=== PATIENT | female | born 1985 | race African-American/Black ===

== ENCOUNTER 2017-07-26 20:12 | Emergency (ER) | payer OTHER ==
[~2017-07-26] VITALS: Ht 165.1 cm; Wt 59.0 kg
[2017-07-26] MEDS ORDERED: Dicyclomine HCl 10mg/5ml oral soln ORAL ONE (20:45)
[2017-07-26] MEDS ORDERED: Meclizine 25mg tab ORAL ONE (20:45)
--- NOTE | 2017-07-26 20:45 | Emergency Room Report ---
History of Present Illness General Chief Complaint: Abdominal Pain Source: Patient Present Illness HPI Patient is a 31-year-old female presented after increased of vomiting and diarrhea. The patient gradual onset of symptoms. This reported having vomiting for the past few hours associated with some vertigo sensation. Patient reported having a mild headache. She denies any neck stiffness. She gradual onset of symptoms. Patient also had noticed him a small amount of blood in her urine. She had lower abdominal cramping. Patient stated that she had recently taken Plan B. She states her normal menstrual cycle occurs usually on the . She denies being .She denied having any bloody stools or hematemesis. Allergies: Coded Allergies: No Known Allergies (Unverified , 07/26/17) Patient History Past Medical History: see triage record Last Menstrual Period: JUN 28 Now: No Reviewed Nursing Documentation: PMH: Agreed, PSxH: Agreed Nursing Documentation-PMH Past Medical History: No Stated History Review of Systems All Other Systems: negative except mentioned in HPI Physical Exam Vital Signs Date Time Temp Pulse Resp B/P (MAP) Pulse Ox O2 Delivery O2 Flow Rate FiO2 07/26/17 20:15 98.4 78 20 141/83 98 Room Air Sp02 EP Interpretation: reviewed, normal General Appearance: normal inspection, well appearing, no apparent distress, alert, GCS 15, non-toxic Head: atraumatic ENT: normal ENT inspection, hearing grossly normal, normal voice Neck: normal inspection, full range of motion, supple, no bony tend Respiratory: normal inspection, lungs clear, normal breath sounds, no respiratory distress, no retraction, no wheezing Cardiovascular #1: regular rate, rhythm, no edema Gastrointestinal: normal inspection, normal bowel sounds, non tender, soft, no guarding, no hernia Genitourinary: no CVA tenderness Musculoskeletal: normal inspection, back normal, normal range of motion Neurologic: normal inspection, alert, oriented x3, responsive, cps team lead III-XII nml as tested, speech normal Psychiatric: normal inspection, judgement/insight normal, mood/affect normal Skin: normal inspection, normal color, no rash Medical Decision Making Diagnostic Impression: Primary Impression: Urinary tract infection ER Course Patient presented for abdominal pain. Differential diagnoses included ischemic bowel, appendicitis, perforated viscus, abdominal aortic aneurysm, inferior myocardial infarction, viral gastroenteritis Because of complexity of patient's case laboratory testing and imaging studies were ordered.Patient was given IV fluids. She was given IV antiemetics. She had no fever. Patient was noted to have improvement in pain and nausea after medications.The patient is advised to follow up with primary care doctor in 1- 2 days. Patient is advised to return if any worsening condition or if any changes in status that are concerning. Labs Test 07/26/17 20:22 07/26/17 20:32 Urine Color Pale yellow Urine Appearance Slightly cloudy Urine pH 8 (4.5-8.0) Urine Specific [place] 1.010 (1.005-1.035) Urine Protein Negative (NEGATIVE) Urine Glucose (UA) Negative (NEGATIVE) Urine Ketones Negative (NEGATIVE) Urine Occult Blood 5+ (NEGATIVE) Urine Nitrite Negative (NEGATIVE) Urine Bilirubin Negative (NEGATIVE) Urine Urobilinogen 1 MG/DL (0.0-1.0) Urine Leukocyte Esterase 1+ (NEGATIVE) Urine RBC 2-4 /HPF (0 - 2) Urine WBC 5-10 /HPF (0 - 2) Urine Squamous Epithelial Cells Many /LPF (NONE/OCC) Urine Bacteria Few /HPF (NONE) Urine HCG, Qualitative Negative White Blood Count 5.4 K/UL (4.8-10.8) Red Blood Count 4.24 M/UL (4.20-5.40) Hemoglobin 12.1 G/DL (12.0-16.0) Hematocrit 36.7 % (37.0-47.0) Mean Corpuscular Volume 87 FL (80-99) Mean Corpuscular Hemoglobin 28.5 PG (27.0-31.0) Mean Corpuscular Hemoglobin Concent 32.9 G/DL (32.0-36.0) Red Cell Distribution Width 12.6 % (11.6-14.8) Platelet Count 175 K/UL (150-450) Mean Platelet Volume 8.4 FL (6.5-10.1) Neutrophils (%) (Auto) 42.2 % (45.0-75.0) Lymphocytes (%) (Auto) 44.4 % (20.0-45.0) Monocytes (%) (Auto) 9.8 % (1.0-10.0) Eosinophils (%) (Auto) 1.2 % (0.0-3.0) Basophils (%) (Auto) 2.4 % (0.0-2.0) Sodium Level 139 mEQ/L (135-145) Potassium Level 3.7 mEQ/L (3.4-4.9) Chloride Level 103 mEQ/L (98-107) Carbon Dioxide Level 27 mEQ/L (20-30) Anion Gap 9 (5-15) Blood Urea Nitrogen 15 mg/dL (7-23) Creatinine 0.8 mg/dL (0.5-0.9) Estimat Glomerular Filtration Rate > 60 mL/min (>60) Glucose Level 106 mg/dL (74-106) Calcium Level 9.4 mg/dL (8.6-10.2) Total Bilirubin 0.3 mg/dL (0.0-1.2) Aspartate Amino Transf (AST/SGOT) 13 U/L (5-40) Alanine Aminotransferase (ALT/SGPT) 9 U/L (3-33) Alkaline Phosphatase 67 U/L (35-104) Total Protein 7.4 g/dL (6.6-8.7) Albumin 4.4 g/dL (3.5-5.2) Globulin 3.0 g/dL Albumin/Globulin Ratio 1.4 (1.0-2.7) Lipase 24 U/L (< 60) Last Vital Signs Date Time Temp Pulse Resp B/P (MAP) Pulse Ox O2 Delivery O2 Flow Rate FiO2 07/26/17 20:15 98.4 78 20 141/83 98 Room Air Status: improved Disposition: HOME, SELF-CARE Condition: Stable Scripts Cephalexin* (KEFLEX*) 500 Mg Capsule 500 MG ORAL Q6H, #28 CAP 0 Refills Prov: Chaim Bautista 07/26/17 Ondansetron (Zofran) 4 Mg Tablet 4 MG ORAL Q6H Y for Nausea & Vomiting, #30 TAB 0 Refills Prov: Chaim Bautista 07/26/17 Meclizine Hcl* (MECLIZINE*) 25 Mg Tablet 25 MG ORAL THREE TIMES A DAY for vertigo, #20 TAB Prov: Chaim Bautista 07/26/17 Chaim Bautista Jul 26, 2017 20:45
[2017-07-26 20:48] VITALS: BP 123/73
[2017-07-26 20:57] LABS: BASOPHILS % (AUTO) 2.4 % (0.0-2.0); EOSINOPHILS % (AUTO) 1.2 % (0.0-3.0); LYMPHOCYTES % (AUTO) 44.4 % (20.0-45.0); MEAN CORPUSCULAR HEMOGLOBIN 28.5 PG (27.0-31.0); MEAN CORPUSCULAR HGB CONC 32.9 G/DL (32.0-36.0); MEAN CORPUSCULAR VOLUME 87 FL (80-99); MEAN PLATELET VOLUME 8.4 FL (6.5-10.1); MONOCYTES % (AUTO) 9.8 % (1.0-10.0); NEUTROPHILS % (AUTO) 42.2 % (45.0-75.0); PLATELET COUNT 175 K/UL (150-450); RED BLOOD COUNT 4.24 M/UL (4.20-5.40); RED CELL DISTRIBUTION WIDTH 12.6 % (11.6-14.8); WHITE BLOOD COUNT 5.4 K/UL (4.8-10.8)
[2017-07-26 21:03] LABS: APPEARANCE,URINE SLIGHTLY CLOUDY; KETONES,URINE NEGATIVE (NEGATIVE); LEUKOCYTE ESTERASE ,URINE 1+ (NEGATIVE); NITRITE,URINE NEGATIVE (NEGATIVE); PH,URINE 8 (4.5-8.0); PROTEIN,URINE NEGATIVE (NEGATIVE); UROBILINOGEN,URINE 1 MG/DL (0.0-1.0)
[2017-07-26 21:14] LABS: BACTERIA,URINE FEW /HPF; SQUAMOUS EPITHELIAL CELL,UR MANY /LPF (NONE/OCC)
[2017-07-26 21:18] LABS: ALANINE AMINOTRANSFERASE 9 U/L (3-33); ALBUMIN/GLOBULIN RATIO 1.4 (1.0-2.7); ANION GAP 9 (5-15); ASPARTATE AMINO TRANSFERASE 13 U/L (5-40); CALCIUM 9.4 mg/dL (8.6-10.2); CARBON DIOXIDE 27 mEQ/L (20-30); CHLORIDE 103 mEQ/L (98-107); CREATININE 0.8 mg/dL (0.5-0.9); GLOMERULAR FILTRATION RATE > 60 mL/min (>60); HEMOLYSIS 0; LIPASE 24 U/L (< 60); POTASSIUM 3.7 mEQ/L (3.4-4.9); SODIUM 139 mEQ/L (135-145); TOTAL PROTEIN 7.4 g/dL (6.6-8.7)
[2017-07-26] MEDS ORDERED: cefTRIAXone 1 GM in NS 55 ML IVPB ONE (21:30)
[2017-07-26] MEDS ORDERED: ZOFRAN4 MG ORAL (21:58)
[2017-07-26] MEDS ORDERED: KEFLEX500 MG ORAL (21:58)
[2017-07-26] MEDS ORDERED: MECLIZINE HCL25 MG ORAL (21:58)
[2017-07-26 22:07] VITALS: BP 150/63
== END 2017-07-26 22:07 | disposition home or self-care (01) ==
LOC: EMR 20:45
DX: N39.0 Urinary tract infection, site not specified (principal); R11.10 Vomiting, unspecified; R19.7 Diarrhea, unspecified
CPT/HCPCS: 36415; 80053; 81003; 81025; 83690; 85025; 96365; 96375; 99284; J0696; J2405

== ENCOUNTER 2017-08-20 02:06 | Emergency (ER) | payer OTHER ==
[~2017-08-20] VITALS: Ht 165.1 cm; Wt 59.0 kg
[~2017-08-20 02:06] MED LIST: KEFLEX500 MG ORAL; MECLIZINE HCL25 MG ORAL; ZOFRAN4 MG ORAL
[2017-08-20] MEDS ORDERED: Tetanus/Diptheria/Pertussis Vaccine 0.5ml Syr IM ONE (02:30)
[2017-08-20 02:34] VITALS: BP 118/68
[2017-08-20] MEDS ORDERED: Bacitracin Oint UD TOPIC ONE (02:45)
[2017-08-20 02:55] VITALS: BP 118/68
--- NOTE | 2017-08-20 06:02 | Emergency Room Report ---
History of Present Illness General Chief Complaint: Laceration Source: Patient Present Illness HPI 32-year-old female no significant past medical history presenting with abrasion to left back. Patient states that she was at work, bent down and then got up, scratched the left lower back onto the side of a chair, minimal bleeding. No other injuries. Tetanus is not up to date Allergies: Coded Allergies: No Known Allergies (Unverified , 07/26/17) Patient History Past Medical History: see triage record Past Surgical History: none Pertinent Family History: none Last Menstrual Period: jul 29 Now: No : 0 Reviewed Nursing Documentation: PMH: Agreed, PSxH: Agreed Nursing Documentation-PMH Past Medical History: No Stated History Review of Systems All Other Systems: negative except mentioned in HPI Physical Exam Vital Signs Date Time Temp Pulse Resp B/P (MAP) Pulse Ox O2 Delivery O2 Flow Rate FiO2 08/20/17 02:08 98.8 85 18 115/73 98 Room Air Sp02 EP Interpretation: reviewed, normal General Appearance: normal inspection, well appearing, no apparent distress, alert, GCS 15, non-toxic Head: normocephalic, atraumatic Eyes: bilateral eye normal inspection, bilateral eye PERRL, bilateral eye EOMI ENT: normal ENT inspection, normal pharynx, normal voice, moist mucus membranes Neck: normal inspection, full range of motion, supple Respiratory: normal inspection, lungs clear, normal breath sounds, no respiratory distress, no retraction, no wheezing, speaking full sentences, chest symmetrical Cardiovascular #1: normal inspection, regular rate, rhythm, no edema, normal capillary refill Cardiovascular #2: 2+ radial (R), 2+ radial (L) Gastrointestinal: normal inspection, non tender, soft, non-distended, no guarding Musculoskeletal: normal inspection, back normal, normal range of motion, non- tender Neurologic: normal inspection, alert, oriented x3, responsive, motor strength/ tone normal, sensory intact, normal gait, speech normal Psychiatric: normal inspection, judgement/insight normal, memory normal Skin: warm/dry, well hydrated, normal turgor, other - Left lower back, superficial abrasion measuring 2 x 2 centimeter, no purulent drainage, no surrounding erythema Medical Decision Making Diagnostic Impression: Primary Impression: Abrasion ER Course 32-year-old female with left-sided back abrasion DDX: Abrasion no signs of cellulitis Plan: Tdap ER course: Patient has remained stable during ED stay. Wound was cleaned, bacitracin applied, sterile dressing Disposition: Patient is to be discharged to home. Patient instructed to followup with her doctor in 3-4 days for wound recheck Strict return precautions discussed with patient such as fever, chills, worsening/severe pain, photographic spotter for rash, purulent drainage Please note that this Emergency Department Report was dictated using [employer] development coordinator technology software, occasionally this can lead to erroneous entry secondary to interpretation by the dictation equipment Last Vital Signs Date Time Temp Pulse Resp B/P (MAP) Pulse Ox O2 Delivery O2 Flow Rate FiO2 08/20/17 02:55 98.2 68 16 118/68 98 Room Air Disposition: HOME, SELF-CARE Condition: Improved Patient Instructions: Abrasion Additional Instructions: Please followup with your primary care doctor in 3 days for wound recheck Is return to the emergency room if you're experiencing spread of rash, yellow discharge, fever chills Adelina Cisneros M.D. Aug 20, 2017 06:02
== END 2017-08-20 02:55 | disposition home or self-care (01) ==
LOC: EMR 02:31
DX: S30.810A Abrasion of lower back and pelvis, initial encounter (principal); W22.03XA Walked into furniture, initial encounter; Y92.89 Other specified places as the place of occurrence of the external cause; Z23 Encounter for immunization
CPT/HCPCS: 90471; 90715; 99283

== ENCOUNTER 2017-11-17 09:10 | Emergency (ER) | payer OTHER ==
[~2017-11-17] VITALS: Ht 165.1 cm; Wt 59.0 kg
[2017-11-17] MEDS ORDERED: NKM (09:18)
[2017-11-17] MEDS ORDERED: Albuterol ud Inhalation HHN ONE (09:45)
[2017-11-17] MEDS ORDERED: IBUPROFEN800 MG ORAL (09:46)
[2017-11-17] MEDS ORDERED: TAMIFLU75 MG ORAL (09:46)
[2017-11-17] MEDS ORDERED: ZOFRAN ODT4 MG ORAL (09:46)
[2017-11-17 10:30] VITALS: BP 130/76
--- NOTE | 2017-11-17 13:29 | Emergency Room Report ---
History of Present Illness General Chief Complaint: General Complaint Source: Patient Present Illness HPI 32-year-old female with 2 days of productive cough, vomiting Partner was recently treated for influenza with Tamiflu Shaded with myalgias and chills Is not taking any [id number] medication aside from NyQuil Measured fever at home Denies abdominal pain, or any urinary complaints or headache Allergies: Coded Allergies: No Known Allergies (Unverified , 07/26/17) Patient History Past Medical History: none Past Surgical History: none Pertinent Family History: none Social History: Denies: smoking, alcohol use, drug use Last Menstrual Period: 11/12/16. Now: No Reviewed Nursing Documentation: PMH: Agreed, PSxH: Agreed Nursing Documentation-PMH Past Medical History: No Stated History Review of Systems All Other Systems: negative except mentioned in HPI Physical Exam Vital Signs Date Time Temp Pulse Resp B/P (MAP) Pulse Ox O2 Delivery O2 Flow Rate FiO2 11/17/17 09:15 100.6 95 22 133/71 99 Room Air 11/17/17 09:23 98 Sp02 EP Interpretation: reviewed, normal General Appearance: normal inspection, well appearing, no apparent distress, alert, GCS 15, non-toxic, other - Crying, plentiful tears Head: normocephalic, atraumatic Eyes: bilateral eye PERRL, bilateral eye EOMI ENT: normal ENT inspection, hearing grossly normal, normal pharynx, no angioedema, normal voice, TMs + canals normal, uvula midline, moist mucus membranes Neck: normal inspection, full range of motion, supple, thyroid normal, no meningismus, no bony tend Respiratory: normal inspection, lungs clear, normal breath sounds, no rhonchi, no respiratory distress, no retraction, no accessory muscle use, no wheezing, speaking full sentences Cardiovascular #1: regular rate, rhythm, no edema, no JVD, normal capillary refill Gastrointestinal: normal inspection, normal bowel sounds, non tender, soft, no mass, no peritonitis, non-distended, no guarding, no hernia, no pulsatile mass Genitourinary: no CVA tenderness Musculoskeletal: normal inspection, back normal, normal range of motion, no calf tenderness, pelvis stable, Demetrius's Sign negative Neurologic: normal inspection, alert, oriented x3, responsive, bulk mail clerk III-XII nml as tested, motor strength/tone normal, cerebellar normal, normal gait, speech normal Psychiatric: normal inspection, judgement/insight normal, mood/affect normal, no suicidal/homicidal ideation, no delusions Skin: normal inspection, normal color, no rash Lymphatic: normal inspection, no adenopathy Medical Decision Making Diagnostic Impression: Primary Impression: Flu ER Course vital signs significant for low-grade fever Normotensive Otherwise well appearing, non septic No sign of bacterial infection on exam patient requesting IV fluid hydration - however explained to patient that given the amount of crying/tears she is able to produce, unlikely that she is acutely dehydrated we decided on oral Zofran and Tylenol, after which patient was able to tolerate PO Given that patient's partner in close quarters also was treated for influenza recently we'll give prescription for Tamiflu Last Vital Signs Date Time Temp Pulse Resp B/P (MAP) Pulse Ox O2 Delivery O2 Flow Rate FiO2 11/17/17 10:30 100.6 82 22 130/76 100 Room Air 98 Status: improved Disposition: HOME, SELF-CARE Condition: Improved Scripts Ondansetron Odt* (ZOFRAN ODT*) 4 Mg Tab.rapdis 4 MG ORAL TID Y for Nausea & Vomiting, #12 TAB 0 Refills Prov: HONEY BORDEN M.D. 11/17/17 Ibuprofen* (MOTRIN*) 800 Mg Tablet 800 MG ORAL THREE TIMES A DAY for 7 Days, #30 TAB 0 Refills Prov: HONEY BORDEN M.D. 11/17/17 Oseltamivir Phosphate (Tamiflu) 75 Mg Capsule 75 MG ORAL TWICE A DAY for 5 Days, #10 CAP Prov: HONEY BORDEN M.D. 11/17/17 Referrals: [employer],REFERRIN (PCP) Patient Instructions: Influenza, Adult, [id number] Additional Instructions: - Take ALL tamiflu until finished - Take zofran as needed for nausea and drink fluid at home and eat healthy food - Take motrin for body aches HONEY BORDEN M.D. Nov 17, 2017 13:29
== END 2017-11-17 10:30 | disposition home or self-care (01) ==
LOC: EMR 09:25
DX: J11.1 Influenza due to unidentified influenza virus with other respiratory manifestations (principal)
CPT/HCPCS: 94640; 94664; 99284